=== PATIENT | male | born 1975 | race Caucasian/White ===

== ENCOUNTER 2020-06-12 15:00 | Emergency (ER) | payer MEDICAID ==
[~2020-06-12] VITALS: Ht 180.3 cm; Wt 141.1 kg
[2020-06-12 15:08] VITALS: Ht 180.3 cm; Wt 141.1 kg
[2020-06-12 17:13] VITALS: BP 156/92
== END 2020-06-12 17:13 | disposition home or self-care (01) ==
LOC: ED 15:00
DX: S46.912A Strain of unspecified muscle, fascia and tendon at shoulder and upper arm level, left arm, initial encounter (principal); S00.03XA Contusion of scalp, initial encounter; W20.8XXA Other cause of strike by thrown, projected or falling object, initial encounter; Y93.89 Activity, other specified; Y92.89 Other specified places as the place of occurrence of the external cause; Y99.8 Other external cause status
CPT/HCPCS: J1885

== ENCOUNTER 2020-06-18 20:04 | Emergency (ER) | payer MEDICAID ==
[~2020-06-18] VITALS: Ht 180.3 cm; Wt 142.0 kg
[2020-06-18 20:19] VITALS: Ht 180.3 cm; Wt 142.0 kg
[2020-06-18 22:25] VITALS: BP 136/85
== END 2020-06-18 22:25 | disposition home or self-care (01) ==
LOC: ED 20:04
DX: M54.2 Cervicalgia (principal); R03.0 Elevated blood-pressure reading, without diagnosis of hypertension; M25.512 Pain in left shoulder
CPT/HCPCS: J1885